=== PATIENT | female | born 1955 | race Caucasian/White ===

== ENCOUNTER 2017-08-25 13:52 | Emergency (ER) | payer OTHER ==
[2017-08-25 13:58] VITALS: BP 135/67
[2017-08-25] MEDS ORDERED: RABIES IMMUNE GLOBULIN 300 UNIT/2 ML VIAL IM ONE (14:14)
[2017-08-25] MEDS ORDERED: RABIES VACC, HUMAN DIPLOID/PF 2.5 UNIT VIAL (RABAVERT) IM ONE (14:14)
--- NOTE | 2017-08-25 14:18 | EDPHY ---
H & P Time Seen by Provider: 08/25/17 14:04 HPI/ROS: CHIEF COMPLAINT: Bat exposure HISTORY OF PRESENT ILLNESS: Currently no symptoms. A bat brushed against her leg 2 days ago, unknown if she was bitten. REVIEW OF SYSTEMS: None PAST MEDICAL HISTORY: Hypertension Social history: [facility] patient General Appearance: Alert and conversant, cooperative. Ambulatory, skin normal at the side of the bat contact on the left leg. Emergency Department course/MDM: Risk benefit alternatives of rabies immunoglobulin and vaccine discussed with the patient and consented. With this exposure I think benefit of vaccine and immunoglobulin outweighs potential risk. Smoking Status: Never smoked Constitutional: Initial Vital Signs Temperature (C) 36.6 C 08/25/17 13:54 Heart Rate 85 08/25/17 13:54 Respiratory Rate 18 08/25/17 13:54 Blood Pressure 135/67 H 08/25/17 13:54 O2 Sat (%) 98 08/25/17 13:54 O2 Delivery Mode Room Air Allergies/Adverse Reactions: doxycycline Allergy (Mild, Verified 08/25/17 13:58) makes my chest hurt gluten Allergy (Mild, Verified 08/25/17 13:59) GI Home Medications: Medication Instructions Recorded Hydrochlorothiazide [HCTZ (*)] 25 mg PO DAILY 08/25/17 MDM/Departure - MDM Medications Given: Discontinued Medications Rabies Immune Globulin (Imogam Rabies Ht 2ml) 1,200 unit IM .ONCE ONE Stop: 08/25/17 14:15 Last Admin: 08/25/17 15:13 Dose: 1,200 unit Rabies Vaccine Human Diploid Cell (Rabavert) 2.5 unit IM .ONCE ONE Stop: 08/25/17 14:15 Last Admin: 08/25/17 14:26 Dose: 2.5 unit - Depart Disposition: Home, Routine, Self-Care Clinical Impression: Exposure to bat without known bite Condition: Good Instructions: Rabies Immune Globulin (By injection), Rabies Vaccine (ED) Additional Instructions: You need further rabies vaccine on day 3 (August 28), day 7 (September 01), and day 14 ( september 08). Come to the emergency department or you can alternatively call Dr. Veliz's office at [facility] to receive these. Referrals: Jenn Lockwood MD [Primary Care Provider] - As per Instructions Parish Veliz MD [Medical Doctor] - As per Instructions
== END 2017-08-25 15:31 | disposition home or self-care (01) ==
DX: Z20.3 Contact with and (suspected) exposure to rabies (principal); I10 Essential (primary) hypertension; Z23 Encounter for immunization

== ENCOUNTER 2017-08-28 11:13 | Emergency (ER) | payer OTHER ==
[2017-08-28] MEDS ORDERED: RABIES VACC, HUMAN DIPLOID/PF 2.5 UNIT VIAL (RABAVERT) IM ONE (11:23)
--- NOTE | 2017-08-28 11:23 | EDPHY ---
H & P Time Seen by Provider: 08/28/17 11:22 HPI/ROS: CHIEF COMPLAINT: Here for rabies vaccine 2. HISTORY OF PRESENT ILLNESS: Who 61-year-old female in the ER for rabies vaccination 2. Today is Wednesday. She was seen in the ER on August 25 after a bat brushed up against her and did not definitively bite her. Post exposure prophylaxis initiated at that point. Further vaccinations are planned at the [facility]. She is asymptomatic. REVIEW OF SYSTEMS: A ten point review of systems was performed and is negative with the exception of the items mentioned in the HPI PAST MEDICAL & SURGICAL HISTORY: No pertinent medical or surgical history SOCIAL HISTORY: Nonsmoker PHYSICAL EXAM (Prior to examination, patient consented to physical exam, hands were washed and my usual and customary physical exam procedures followed) 1) GENERAL: Well-developed, well-nourished, alert and oriented. Appears to be in no acute distress. 2) HEAD: Normocephalic, atraumatic 3) HEENT: Pupils equal, round, reactive to light bilaterally. Sclera anicteric. 4) NECK: Full range of motion, no meningeal signs. 5) LUNGS: Clear auscultation bilaterally, no wheezes, no rhonchi, no retractions. 6) HEART: Regular rate and rhythm, no murmur, no heave, no gallop. 7) ABDOMEN: No guarding, no rebound, no focal tenderness, negative McBurney's, negative Barrientos's, negative Rovsing's, negative peritoneal sign, 8) MUSCULOSKELETAL: Injection sites are evaluated by myself appear well with no signs of infection or irritation. 9) BACK: No CVA tenderness, no midline vertebral tenderness, no fluctuance, no step-off, no obvious trauma, no visual or palpable abnormality. 10) SKIN: No rash, no petechiae. 11) Psychiatric: Patient is oriented X 3, there is no agitation. DIFFERENTIAL DIAGNOSIS: In no particular include but limited to rabies exposure, rabies vaccination, cellulitis Smoking Status: Never smoked Constitutional: Initial Vital Signs Temperature (C) 36.6 C 08/28/17 11:15 Heart Rate 88 08/28/17 11:15 Respiratory Rate 16 08/28/17 11:15 Blood Pressure 139/82 H 08/28/17 11:15 O2 Sat (%) 98 08/28/17 11:15 O2 Delivery Mode Room Air Allergies/Adverse Reactions: doxycycline Allergy (Mild, Verified 08/28/17 11:15) makes my chest hurt gluten Allergy (Mild, Verified 08/28/17 11:15) GI Home Medications: Medication Instructions Recorded Hydrochlorothiazide [HCTZ (*)] 25 mg PO DAILY 08/25/17 MDM/Departure - MDM Medications Given: Discontinued Medications Rabies Vaccine Human Diploid Cell (Rabavert) 2.5 unit IM .ONCE ONE Stop: 08/28/17 11:24 Last Admin: 08/28/17 11:33 Dose: 2.5 unit ED Course/Re-evaluation: Patient received rabies vaccination. She is asymptomatic. She will receive a further vaccination at the [facility] as today is Wednesday. She feels comfortable being discharged. I saw this patient independently based on established practice protocols. Care of patient under supervision of secondary supervising physician Dr Cuevas . - Depart Disposition: Home, Routine, Self-Care Clinical Impression: Need for rabies vaccination, Exposure to bat without known bite Condition: Good Instructions: Rabies (ED), Rabies Vaccine (ED) Additional Instructions: Today you received dose 2, your next scheduled vaccine is day 7 ( September 01 ) and day 14 ( September 08), you can have these administered at the [facility] with Dr. Parish Veliz or any of his colleagues. Referrals: Parish Veliz MD [Medical Doctor] - 09/01/17 (Today you received dose 2, your next scheduled vaccine is day 7 ( September 01 )and day 14 ( September 08), you can have these administered at the [facility] with Dr. Parish Veliz or any of his colleagues. )
[2017-08-28 11:56] VITALS: BP 135/80
== END 2017-08-28 11:56 | disposition home or self-care (01) ==
DX: Z20.3 Contact with and (suspected) exposure to rabies (principal); Z23 Encounter for immunization